=== PATIENT | female | born 1935 | race Caucasian/White ===

== ENCOUNTER 2016-05-13 13:46 | Emergency (ER) | payer MEDICARE, OTHER ==
[~2016-05-13 13:46] MED LIST: COUMADIN6 MG PO; DEMADEX20 MG PO; DRISDOL50000 UNIT PO; FOLIC ACID1 MG PO; LEVEMIR VI100 UNITS/ SQ; LIPITOR40 M1 PO; LOPRESSOR50 MG PO; NORCO 7.5-3251 EACH PO; NOVOLOG FL100 UNIT/1 SQ; NU-IRON 150150 MG PO; PLAVIX75 MG PO; PROZAC20 MG PO; SYNTHROID100 MCG PO; VITAMIN B-121000 MC1 PO
[2016-05-13 15:44] LABS: BASOPHIL 0.5 % (0-2); HCT 38.6 % (37.0-47.0); HGB 12.1 g/dl (12.5-16.0); LYMPHOCYTE 19.2 % (15-48); MCH 31.9 pg (25.0-31.0); MCHC 31.3 g/dL (32.0-36.0); MCV 101.8 fL (78.0-100.0); MONOCYTE 9.2 % (0-12); MPV 10.6 fL (6.0-9.5); NEUTROPHIL 66.1 % (41-80); PLT 222 K/uL (150-400); RBC 3.79 M/uL (4.20-5.40); RDW 13.4 % (11.5-14.0); WBC 10.8 K/uL (4.0-10.5)
[2016-05-13 16:07] LABS: ALBUMIN 3.8 g/dL (3.4-4.8); BILIRUBIN - TOTAL 0.3 mg/dL (0.1-1.0); CREATININE 1.3 mg/dL (0.5-1.0); GLOBULIN (CALCULATION) 3.5 g/dL (2.2-4.2); POTASSIUM 4.5 mmol/L (3.5-5.1); TOTAL PROTEIN 7.3 g/dL (6.4-8.3)
[2016-05-13 16:08] LABS: TROPONIN T < 0.010 ng/mL
[2016-05-13 16:09] LABS: PRO-BNP 2907 pg/mL (0-450)
[2016-05-13 16:39] LABS: BILIRUBIN NEGATIVE (NEGATIVE); BLOOD TRACE-INTACT Ery/uL (NEGATIVE); CLARITY CLEAR (CLEAR); COLOR COLORLESS (YELLOW); GLUCOSE (U) NORMAL (NORMAL); KETONE (U) NEGATIVE (NEGATIVE); LEUKOCYTES NEGATIVE Leu/uL (NEGATIVE); NITRITE NEGATIVE (NEGATIVE); PROTEIN NEGATIVE (NEGATIVE); SPECIFIC GRAVITY <=1.005 (1.001-1.030); UROBILINOGEN 0.2 mg/dL (0.2-1.0)
[2016-05-13 16:48] LABS: BACTERIA TRACE; SQUAMOUS EPITHELIAL CELLS RARE; URINARY WBC RARE
== END 2016-05-13 17:50 | disposition home or self-care (01) ==
LOC: FER 13:46
PROVIDERS: Internal Medicine
DX: I11.0 Hypertensive heart disease with heart failure (principal); I25.10 Atherosclerotic heart disease of native coronary artery without angina pectoris; E03.9 Hypothyroidism, unspecified; E78.5 Hyperlipidemia, unspecified; Z88.0 Allergy status to penicillin; Z88.5 Allergy status to narcotic agent; Z88.6 Allergy status to analgesic agent; Z88.8 Allergy status to other drugs, medicaments and biological substances
CPT/HCPCS: 36415; 71010; 80053; 81001; 83880; 84484; 85025; 93005

== ENCOUNTER 2020-03-14 19:29 | Day surgery (SDCO) | payer MEDICARE, OTHER ==
[~2020-03-14] VITALS: Ht 170.2 cm; Wt 104.1 kg
[~2020-03-14 19:29] MED LIST changes: +8 HOUR650 MG PO; +ALDACTONE25 MG PO; +AZO CRANBERRY1 EAC1 PO; +DRAMAMINE25 MG PO; +LASIX40 MG PO; +LEVEMIR VI100 UNITS/ SC; +NORCO 5-325 TA1 EACH PO; +UROCIT-K10 MEQ PO; +VITAMIN D21250 MCG PO; +WARFARIN SODIUM3 MG PO; +WARFARIN SODIUM6 MG PO; +ZOFRAN4 MG SL
[2020-03-15 01:18] LABS: BASOPHIL 0.5 % (0-2); EOSINOPHIL 2.5 % (0-7); HCT 34.7 % (37.0-47.0); HGB 10.6 g/dl (12.5-16.0); LYMPHOCYTE 19.2 % (15-48); MCH 31.6 pg (25.0-31.0); MCHC 30.5 g/dL (32.0-36.0); MCV 103.6 fL (78.0-100.0); MONOCYTE 6.6 % (0-12); MPV 10.9 fL (6.0-9.5); NEUTROPHIL 70.8 % (41-80); NRBC 0; PLT 217 K/uL (150-400); RBC 3.35 M/uL (4.20-5.40); RDW 13.9 % (11.5-14.0); WBC 9.7 K/uL (4.0-10.5)
[2020-03-15 01:34] LABS: INR 2.76 (0.9-1.2); PROTHROMBIN TIME 27.8 SECONDS (11.4-13.6)
[2020-03-15 01:59] LABS: ALBUMIN 2.8 g/dL (3.4-5.0); BILIRUBIN - TOTAL 0.3 mg/dL (0.2-1.0); BUN/CREAT RATIO (CALC) 16.6 RATIO; CREATININE 1.51 mg/dL (0.51-0.95); GLOBULIN (CALCULATION) 3.8 g/dL; POTASSIUM 4.2 mmol/L (3.5-5.1); TOTAL PROTEIN 6.6 g/dL (6.4-8.2)
[2020-03-15] MEDS ORDERED: WARFARIN SODIUM3 MG PO (02:35)
[2020-03-15] MEDS ORDERED: FERROUS SULFAT325 MG PO (02:36)
[2020-03-15] MEDS ORDERED: [UNRECOGNIZED DRUG - OTHER] OP (02:38)
[2020-03-15] MEDS ORDERED: POLYMYXIN OP (02:38)
[2020-03-15] MEDS ORDERED: HYDROCODON-ACE1 EAC2 PO (02:39)
--- NOTE | 2020-03-15 05:33 | NUR ---
DISCUSSED PLAN OF CARE WITH PATIENT. PATIENT STATED SHE IS GOING HOME TODAY. HER SISTER IS COMING TO GET HER SO SHE CAN GO TO [place] TO HAVE HER BROKEN LEG FIXED. STATED THAT SHE WILL NOT HAVE SURGERY HERE THAT THE LAST TIME SHE HAD A SURGICAL PROCEDURE HERE IT DID NOT GO WELL FOR HER. STATED SHE WANTED TO BE TRANSFERED UPON ARRIVING TO THE ED, SHE EXPRESSED THIS MULTIPLE TIMES AND THE PHYSICIAN IN THE ED STATED THAT SHE WILL STAY THE NIGHT AND GO TOMORROW INSTREAD OF TRANSFERING HER WHILE SHE WAS STILL IN THE ED. PATIENT REFUSED A [facility] AND STATED THAT DR. HALE COULD COME SEE HER THIS MORNING IF HE LIKED BUT SHE WAS STILL LEAVING AND GOING TO A [facility] [place] WHERE HER PHARMACIST HELPER IS. SHE STATED THIS IN FRONT OF SEVERAL STAFF ON THE MED SURG UN[facility] WITH ME PRESENT. SHE ALLOWED US TO DRAW LABS AND PERFORM AN EKG TO EVALUATE HER. PT STATED THAT SHE HAS HALUCINATIONS WHILE HERE AND FEELS LIKE ALL SHE DOES IS SCREAM OUT. THIS HOSPITAL MAKES HER FEEL CRAZY
--- NOTE | 2020-03-15 16:26 | NUR ---
03/15/20 Ms. Hernandez will be transferred to [facility]. [facility] is current and was notified of the transfer.
== END 2020-03-15 21:57 | disposition other institution (70) ==
LOC: FER 19:29 → FMS 23:30
PROVIDERS: Nurse Practitioner; ADMIT Internal Medicine
DX: S82.301A Unspecified fracture of lower end of right tibia, initial encounter for closed fracture (principal); I11.0 Hypertensive heart disease with heart failure; I50.32 Chronic diastolic (congestive) heart failure; I21.4 Non-ST elevation (NSTEMI) myocardial infarction; I25.10 Atherosclerotic heart disease of native coronary artery without angina pectoris; I48.20 Chronic atrial fibrillation, unspecified; E78.5 Hyperlipidemia, unspecified; E03.9 Hypothyroidism, unspecified; E11.40 Type 2 diabetes mellitus with diabetic neuropathy, unspecified; E66.01 Morbid (severe) obesity due to excess calories; M19.90 Unspecified osteoarthritis, unspecified site; J44.9 Chronic obstructive pulmonary disease, unspecified; Z95.5 Presence of coronary angioplasty implant and graft; Z96.652 Presence of left artificial knee joint; Z82.49 Family history of ischemic heart disease and other diseases of the circulatory system; Z88.6 Allergy status to analgesic agent; Z88.5 Allergy status to narcotic agent; Z88.0 Allergy status to penicillin; Z88.8 Allergy status to other drugs, medicaments and biological substances; Z98.1 Arthrodesis status; Z79.4 Long term (current) use of insulin; Z79.01 Long term (current) use of anticoagulants; Z90.710 Acquired absence of both cervix and uterus; Z90.49 Acquired absence of other specified parts of digestive tract; Z20.822 Contact with and (suspected) exposure to COVID-19; Z98.890 Other specified postprocedural states; Z99.81 Dependence on supplemental oxygen; V00.811A Fall from moving wheelchair (powered), initial encounter; Y93.9 Activity, unspecified
CPT/HCPCS: 36415; 73610; 80053; 84484; 85025; 85610; 85730; 93005; G0378; J7030; U0002

== ENCOUNTER 2021-04-18 04:28 | Emergency (ER) | payer MEDICARE, OTHER ==
[~2021-04-18 04:28] MED LIST changes: +FERROUS SULFAT325 MG PO; +HYDROCODON-ACE1 EAC2 PO; +POLYMYXIN OP; +[UNRECOGNIZED DRUG - OTHER] OP
[2021-04-18 06:51] LABS: BASOPHIL 0.5 % (0-2); EOSINOPHIL 4.4 % (0-7); HCT 39.9 % (37.0-47.0); HGB 12.6 g/dl (12.5-16.0); LYMPHOCYTE 15.1 % (15-48); MCH 32.4 pg (25.0-31.0); MCHC 31.6 g/dL (32.0-36.0); MCV 102.6 fL (78.0-100.0); MONOCYTE 8.3 % (0-12); MPV 10.1 fL (6.0-9.5); NEUTROPHIL 71.3 % (41-80); NRBC 0; PLT 199 K/uL (150-400); RBC 3.89 M/uL (4.20-5.40); RDW 13.2 % (11.5-14.0); WBC 7.8 K/uL (4.0-10.5)
[2021-04-18 08:28] LABS: INR 2.25 (0.9-1.2)
[2021-04-18 08:29] LABS: PTT 52.3 SECONDS (24.4-34.7)
== END 2021-04-18 06:21 | disposition home or self-care (01) ==
LOC: FER 04:28
PROVIDERS: Internal Medicine
DX: S00.03XA Contusion of scalp, initial encounter (principal); I50.9 Heart failure, unspecified; E11.9 Type 2 diabetes mellitus without complications; Z79.4 Long term (current) use of insulin; Z88.5 Allergy status to narcotic agent; Z88.6 Allergy status to analgesic agent; W01.0XXA Fall on same level from slipping, tripping and stumbling without subsequent striking against object, initial encounter; Y92.009 Unspecified place in unspecified non-institutional (private) residence as the place of occurrence of the external cause
CPT/HCPCS: 36415; 70450; 85025; 85610; 85730

== ENCOUNTER 2021-10-07 15:25 | Day surgery (SDCO) | payer MEDICARE, OTHER ==
[~2021-10-07] VITALS: Ht 162.6 cm; Wt 100.4 kg
[~2021-10-07 15:25] MED LIST changes: +FEOSOL325 MG PO; +GABAPENTIN300 MG PO; +JANTOVEN4 MG PO; +JANTOVEN5 MG PO; +JANTOVEN6 MG PO; +K-TAB ER10 MEQ PO; +LIPITOR40 MG PO; +METOLAZONE 5MG T5 M1 PO; +NORVASC5 MG PO
[2021-10-07 23:44] LABS: BILIRUBIN NEGATIVE (NEGATIVE); BLOOD TRACE-LYSED Ery/uL (NEGATIVE); CLARITY CLEAR (CLEAR); COLOR YELLOW (YELLOW); GLUCOSE (U) NORMAL (NORMAL); LEUKOCYTES NEGATIVE Leu/uL (NEGATIVE); NITRITE NEGATIVE (NEGATIVE); PROTEIN NEGATIVE (NEGATIVE); SPECIFIC GRAVITY 1.015 (1.001-1.030); UROBILINOGEN 0.2 mg/dL (0.2-1.0); pH 5.5 (5.0-9.0)
[2021-10-07 23:50] LABS: BACTERIA TRACE
[2021-10-08 06:07] LABS: HCT 30.5 % (37.0-47.0); MCH 33.1 pg (25.0-31.0); MCHC 32.8 g/dL (32.0-36.0); MPV 9.4 fL (6.0-9.5); RBC 3.02 M/uL (4.20-5.40); RDW 12.5 % (11.5-14.0); WBC 7.9 K/uL (4.0-10.5)
[2021-10-08 06:18] LABS: INR 1.63 (0.9-1.2); PROTHROMBIN TIME 18.8 SECONDS (11.9-13.9)
[2021-10-08 06:29] LABS: BUN/CREAT RATIO (CALC) 22.4 RATIO; CREATININE 1.07 mg/dL (0.51-0.95); POTASSIUM 3.8 mmol/L (3.5-5.1)
== END 2021-10-08 12:04 | disposition other institution (70) ==
LOC: FER 15:25 → FMS 16:07
PROVIDERS: ADMIT Family Medicine
DX: M48.061 Spinal stenosis, lumbar region without neurogenic claudication (principal); R29.6 Repeated falls; E87.1 Hypo-osmolality and hyponatremia; I48.20 Chronic atrial fibrillation, unspecified; I13.0 Hypertensive heart and chronic kidney disease with heart failure and stage 1 through stage 4 chronic kidney disease, or unspecified chronic kidney disease; E11.22 Type 2 diabetes mellitus with diabetic chronic kidney disease; N18.30 Chronic kidney disease, stage 3 unspecified; I50.32 Chronic diastolic (congestive) heart failure; I25.10 Atherosclerotic heart disease of native coronary artery without angina pectoris; R44.1 Visual hallucinations; E78.5 Hyperlipidemia, unspecified; E03.9 Hypothyroidism, unspecified; E11.40 Type 2 diabetes mellitus with diabetic neuropathy, unspecified; D53.9 Nutritional anemia, unspecified; Z66 Do not resuscitate; Z88.0 Allergy status to penicillin; Z88.6 Allergy status to analgesic agent; Z88.5 Allergy status to narcotic agent; Z88.8 Allergy status to other drugs, medicaments and biological substances; Z79.01 Long term (current) use of anticoagulants; Z79.4 Long term (current) use of insulin; Z79.899 Other long term (current) drug therapy
CPT/HCPCS: 36415; 72148; 80048; 81001; 85610; 94010; G0378; J1815